=== PATIENT | female | born 1965 | race Caucasian/White ===

== ENCOUNTER → 2025-06-17 06:41 | Outpatient (CLI) | payer OTHER, SELFPAY ==
--- NOTE | 2025-06-17 06:44 | DI.ECHO.S_ITS ---
[facility] +---------+ [facility] : : [address] : : [place] : : [address] : : Phone: [phone] Echocardiogram Report + + :Name: RENO ELMORE Study Date: 06/17/2025 Height: 69 in : :Hospital ReadingLocation: Weight: 245 lb: : Gender: Female BSA: 2.3 m2 : :: 1965 Age: 59 yrs : :Reason For Study: HYPERTENSION : :Ordering Physician: PRESTON, : :GIORGIO Cordova Performed By: Clarence Nguyen : :Referring: GIORGIO JOHNSTON : + + Interpretation Summary Rhythm sinus to mild sinus tachycardia. The left ventricle is normal in size. The left ventricular ejection fraction is normal. The ejection fraction is estimated to be 60-65%. The right ventricle is normal in size and function. No significant valvular pathology seen. The inferior vena cava was not visualized. Procedure: A two-dimensional transthoracic echocardiogram with color flow and Doppler was performed. The study quality was technically good. There is no prior echocardiogram noted for this patient. The patient was in normal sinus rhythm during the exam. Rhythm sinus to mild sinus tachycardia. Left Ventricle: The left ventricle is normal in size. Left ventricular wall thickness is mildly increased. There is no thrombus. The ejection fraction is estimated to be 60-65%. The left ventricular ejection fraction is normal. There are no focal wall motion abnormalities. Diastolic parameters suggest a relaxation abnormality of the left ventricle, consistent with probable normal filling pressures. Right Ventricle: The right ventricle is normal in size and function. Atria: The left atrial size is normal. Right atrial size is normal. There is no Doppler evidence for an interatrial shunt. Mitral Valve: The mitral valve leaflets appear normal. There is no evidence of stenosis, fluttering, or prolapse. There is trace mitral regurgitation. Aortic Valve: The aortic valve is trileaflet. The aortic valve opens well. There is no aortic valve stenosis. No aortic regurgitation is present. Tricuspid Valve: The tricuspid valve leaflets are thin and pliable. There is trace tricuspid regurgitation. Pulmonary artery pressures cannot be estimated because of the lack of a measurable TR jet velocity. Pulmonic Valve: The pulmonic valve leaflets are thin and pliable; valve motion is normal. There is a trace or physiologic amount of pulmonic regurgitation. Great Vessels: The aortic root is normal size. The dimensions of the ascending aorta are normal. The pulmonary artery is normal size. The inferior vena cava was not visualized. Pericardium/ Pleura There is no pericardial effusion. MMode/2D Measurements & Calculations LVIDd: 5.0 cm LVOT diam: 2.1 cm LVIDs: 3.3 cm Ao root diam: 3.3 cm FS: 33.4 % asc Aorta Diam: 3.6 cm EPSS: 0.83 cm Ao Arch Diam (Prox Trans): 2.8 cm IVSd: 1.1 cm LVPWd: 1.1 cm LV jimenez. diameter/BSA (cm/m^2): 2.2 LV sys. diameter/BSA (cm/m^2): 1.5 LA A2 area: 18.8 cm2 RA long axis: 4.5 cm LA A4 area: 22.6 cm2 RA area: 14.5 cm2 LA length (vol): 6.3 cm RA vol: 39.8 ml LA vol: 57.4 ml RA : 17.7 ml/m2 LA vol index: 25.5 ml/m2 RVD1 (basal): 3.8 cm RVD2 (mid): 3.2 cm TAPSE: 2.5 cm Doppler Measurements & Calculations Ao V2 max: 138.9 cm/sec LVOT Max Quincy: 116.2 cm/sec Ao V2 mean: 96.5 cm/sec LV V1 max P.4 mmHg Ao max P.7 mmHg LV V1 VTI: 26.5 cm Ao mean P.1 mmHg JA(I,D): 3.1 cm2 Ao V2 VTI: 29.4 cm JA(V,D): 2.9 cm2 sev ratio: 0.90 JA indexed to BSA (cm^2/m^2): 1.4 MV E max quincy: 77.9 cm/sec PA V2 max: 100.1 cm/sec MV A max quincy: 98.4 cm/sec PA V2 mean: 77.4 cm/sec MV E/A: 0.79 PA mean P.6 mmHg Med Peak E' Quincy: 6.8 cm/sec PA pr(Accel): 29.3 mmHg E/E' med: 11.4 Lat Peak E' Quincy: 5.4 cm/sec E/E' lat: 14.3 E/e' average: 12.9 MV dec time: 0.26 sec SV(LVOT): 91.1 ml Reading Physician:09:51 AM
== END ==
LOC: ECHO 06:43
PROVIDERS: PCP Family Medicine; Referring Provider Family Medicine; Visit Provider Family Medicine
DX: I16.0 Hypertensive urgency (principal); I1A.0 Resistant hypertension
CPT/HCPCS: 93306

== ENCOUNTER → 2025-06-24 06:31 | Outpatient (CLI) | payer OTHER, SELFPAY ==
--- NOTE | 2025-06-24 06:32 | DI.US.S_ITS ---
PROCEDURE: US RENAL DOPPLER INDICATIONS: resistant hypertension TECHNIQUE: Real time scanning was performed of both kidneys, followed by Color and pulsed Doppler interrogation of the renal vessels. COMPARISON: None. FINDINGS: Aortic peak systolic velocity: 85 cm/s. Right side: Barry-scale imaging: Kidney is 12.3 cm long. No hydronephrosis. No nephrolithiasis. Renal cortex is normal in echogenicity. No suspicious solid renal masses. Proximal renal artery peak systolic velocity: Not visualized Mid renal artery peak systolic velocity: 80 cm/s. Distal renal artery peak systolic velocity: 59 cm/s. Renal vein: Patent, without thrombus. Peak renal/aortic ratio (RAR): 0.94 Left side: Barry-scale imaging: Kidney is 11.7 cm long. No hydronephrosis. No nephrolithiasis. Renal cortex is normal in echogenicity. No suspicious solid renal masses. Proximal renal artery peak systolic velocity: 33 cm/s. Mid-renal artery peak systolic velocity: 39 cm/s. Distal renal artery peak systolic velocity: 119 cm/s. Renal vein: Patent, without thrombus. Peak renal/aortic ratio (RAR): 1.4 IMPRESSION: No hemodynamically significant stenosis. Dictated by: Wilberto Forrester M.D. on 06/24/2025 at 13:06 Approved by: Wilberto Forrester M.D. on 06/24/2025 at 13:08
== END ==
LOC: US 06:31
PROVIDERS: PCP Family Medicine; Referring Provider Family Medicine; Visit Provider Family Medicine
DX: I16.0 Hypertensive urgency (principal); I1A.0 Resistant hypertension
CPT/HCPCS: 93975